=== PATIENT | female | born 1955 | race Hispanic/Latino ===

== ENCOUNTER 2020-02-26 10:00 | Outpatient (CLI) | payer BC ==
--- NOTE | 2020-02-26 11:58 | Ultrasound Report ---
ULTRASOUND BREAST LIMITED, 02/26/2020 CLINICAL INFORMATION / INDICATION: ABNORMAL RT MAMMO. TECHNIQUE: Targeted ultrasound evaluation was performed of the area of interest. COMPARISON: Recent right mammograms 02/20/2020, 02/15/2020 and prior mammogram 03/08/2019 FINDINGS: Sonographic evaluation of the lateral right breast demonstrates a 7 mm hypoechoic mass in the 8:00 po sition 5 cm from the nipple. It is unclear if this is cystic or solid in appearance. Borders are irre gular. Further evaluation with cyst aspiration and/or biopsy should be performed with post mammogram to document correlation. This mass is a few centimeters anterior to biopsy clip. Additionally there is mild subareolar ductal ectasia. Additionally there is focal area of shadowing a t 11:00 4 cm from the nipple that I believe more than likely corresponds to previous site of biopsy. IMPRESSION: 7 mm hypoechoic mass at 8:00 needs further evaluation with cyst aspiration and/or biopsy. Postaspiration/biopsy mammogram should be performed to ensure correlation with abnormal mammogram fi ndings. Follow up recommendation: Biopsy BI-RADS Category 4: Suspicious for Malignancy. A normal or "negative" report should not preclude biopsy or follow-up of a clinically suspicious find ing. Signer Name: Karin Saleh MD Signed: 02/26/2020 11:54 AM Workstation Name: [id number]
== END 2020-02-26 10:01 | disposition home or self-care (01) ==
LOC: SPVWC 10:00
PROVIDERS: ATTEND Surgery
DX: N63.13 Unspecified lump in the right breast, lower outer quadrant (principal); N60.41 Mammary duct ectasia of right breast

== ENCOUNTER 2020-03-05 12:49 | Outpatient (CLI) | payer BC ==
--- NOTE | 2020-03-05 14:09 | Mammography Report ---
RIGHT DIAGNOSTIC MAMMOGRAM INDICATION: Status post biopsy of right breast lesion at the 8:00 position. COMPARISON: 02/26/2020, 02/12/2020, 02/15/2020. FINDINGS: Right breast CC and ML projection mammograms were obtained. These document location of a U- shaped biopsy marker within the right breast at the 8:00 position. The biopsy marker is noted to be m edial and posterior to the initial mammographic finding which was identified on 02/20/2020. No additi onal sonographic finding was identified. IMPRESSION: Mammographic images of the right breast document the placement of a U-shaped biopsy marker. The biop sy marker placed at the site of biopsy is noted to be more medially and posteriorly than the initial mammographic finding. Of note, no additional suspicious sonographic finding was identified. Should th e biopsy results be found to be benign, a follow-up diagnostic mammogram with spot views and possible ultrasound would be recommended in 6 months. BI-RADS Category 4: Suspicious for Malignancy. Signer Name: Ronald Perez MD Signed: 03/05/2020 2:05 PM Workstation Name: [id number]
--- NOTE | 2020-03-05 14:10 | Ultrasound Report ---
ULTRASOUND-GUIDED CORE NEEDLE BIOPSY Right BREAST WITH CLIP PLACEMENT INDICATION: Right breast lesion at the 8:00 position. FINDINGS: Informed consent was obtained. The lesion within the right breast at the 8:00 position, 5 cm from the nipple, was identified with ultrasound. The overlying skin was cleansed with chloro prep and local a nesthesia was obtained with a 1% lidocaine solution. Under ultrasound guidance a 12-gauge vacuum-assi sted core biopsy needle was advanced through the lesion. The lesion appeared to collapse completely a fter needle positioning, suggesting cystic components. A total of 4 core samples were obtained. A U-s haped biopsy marker was placed to fredis the site of the biopsy. Specimen samples were placed in formal in and sent to pathology for analysis. Patient tolerated the procedure well and no immediate complications were identified. A post procedure mammogram demonstrates the biopsy marker located more medially and posteriorly in the mammographic f inding identified on 02/20/2020 exam. IMPRESSION: Technically successful ultrasound-guided core biopsy of right breast lesion at the 8:00 position. The biopsy marker placed at the site of biopsy is noted to be more medially and posteriorly than t he initial mammographic finding. Of note, no additional suspicious sonographic finding was identified . Should the biopsy results be found to be benign, a follow-up diagnostic mammogram with spot mammogr aphic views (of the initial mammographic finding) and possible ultrasound would be recommended [facility]. An addendum will be added to this report once pathology results are available. Signer Name: Ronald Perez MD Signed: 03/05/2020 2:05 PM Workstation Name: [id number]
== END 2020-03-05 12:50 | disposition home or self-care (01) ==
LOC: SPVWC 12:49
PROVIDERS: ATTEND Surgery
DX: N63.13 Unspecified lump in the right breast, lower outer quadrant (principal); N64.89 Other specified disorders of breast; N62 Hypertrophy of breast; N60.81 Other benign mammary dysplasias of right breast
CPT/HCPCS: 88305

== ENCOUNTER 2020-09-10 10:57 | Outpatient (CLI) | payer BC ==
--- NOTE | 2020-09-10 12:42 | Mammography Report ---
RIGHT DIGITAL DIAGNOSTIC MAMMOGRAM WITH CAD CONVENTIONAL, 09/10/2020 RIGHT LIMITED BREAST ULTRASOUND CLINICAL INFORMATION / INDICATION: Six-month follow-up following biopsy of a nodule in the right sar[address]. ABNORMAL MAMMOGRAM TECHNIQUE: Digital right mammographic imaging was performed. Spot compression views were obtained. Li mited ultrasound was performed. This examination was interpreted with the benefit of Computer-Aided D etection (CAD) analysis. COMPARISON: 03/05/2020, 02/15/2020, 02/20/2020, 02/13/2019, 01/25/2018 FINDINGS: Breast Density: The breasts are heterogeneously dense, which may obscure small masses. MAMMOGRAPHIC FINDINGS: The biopsy marking clip placed in February is medial and inferior to the densi ty seen on the original screening mammogram. This was noted on the post biopsy study. The area of the prior density in the upper outer quadrant of the right breast appears similar to prior imaging. No n ew nodule or mass is identified in this location. ULTRASOUND FINDINGS: Targeted ultrasound evaluation was performed of the area of interest. No sonog raphic abnormality is seen in the right breast corresponding to the area of prior biopsy. No solid or cystic lesions are seen in the area of interest. IMPRESSION: No mammographic or sonographic evidence of malignancy. Follow up recommendation: Routine yearly. Return to screening. BI-RADS Category 2: Benign. A "normal" or negative report should not discourage follow up or biopsy of a clinically significant f inding. A written summary of these findings will be mailed to the patient. The patient will be entered into a mammography reporting system which will generate a reminder letter for the patient's next appointmen t at the appropriate interval. According to the [employer], yearly mammograms are recommended starting at age 40 and continuing as long as a woman is in good health. Breast MRI is recommended for women with an ashish roximately 20-25% or greater lifetime risk of breast cancer, including women with a strong family his tory of breast or ovarian cancer and women who have been treated for Hodgkin's disease. Signer Name: Mazin Fernandez MD Signed: 09/10/2020 12:38 PM Workstation Name: [id number]
== END 2020-09-10 10:58 | disposition home or self-care (01) ==
LOC: SPVWC 10:57
PROVIDERS: ATTEND Surgery
DX: R92.8 Other abnormal and inconclusive findings on diagnostic imaging of breast (principal)